=== PATIENT | female | born 1955 | race Caucasian/White ===

== ENCOUNTER 2018-02-27 20:08 | Emergency (ER) | payer OTHER ==
[2018-02-27 20:15] VITALS: BP 143/87
--- NOTE | 2018-02-27 20:27 | ED ---
Lower Extremity - HPI Summary HPI Summary: Patient is a 62-year-old female who presents to emergency department for right knee pain. Patient states she's been dealing with right knee pain for several months. She states she still orthopedics and has been doing physical therapy. Patient states her knee pain was improving until tonight. Patient states she was walking down steps when her knee gave out and she felt a pop. Patient denies numbness, tingling or weakness to right leg. She states she is unable to bear weight secondary to pain. Symptoms are mild in severity. No significant past medical history. Is prescribed nabumetone by ortho. Walking makes sxs worse. Nothing makes sxs better. - History of Current Complaint Chief Complaint: EDExtremityLower Stated Complaint: RT KNEE INJURY Time Seen by Provider: 02/27/18 20:27 Hx Obtained From: Patient Pain Intensity: 8 - Allergies/Home Medications Allergies/Adverse Reactions: Allergies Allergy/AdvReac Type Severity Reaction Status Date / Time cephalexin [From Keflex] Allergy Hives Verified 02/27/18 20:15 Sulfa (Sulfonamide Allergy Hives Verified 02/27/18 20:15 Antibiotics) PMH/Surg Hx/FS Hx/Imm Hx Previously Healthy: Yes Infectious Disease History: No Infectious Disease History: Denies: Traveled Outside the [place] in Last 30 Days - Social History Occupation: Works From/At Home Lives: With Family Review of Systems Positive: Other - Right knee pain Negative: Weakness, Numbness All Other Systems Reviewed And Are Negative: Yes Physical Exam Triage Information Reviewed: Yes Vital Signs On Initial Exam: Initial Vitals Temp Pulse Resp BP Pulse Ox 99.3 F 93 16 143/87 97 02/27/18 20:10 02/27/18 20:10 02/27/18 20:10 02/27/18 20:10 02/27/18 20:10 Vital Signs Reviewed: Yes Appearance: Positive: Well-Appearing - Pt. sitting in wheelchair in NAD. present. Skin: Positive: Warm, Dry Head/Face: Positive: Normal Head/Face Inspection Eyes: Positive: Normal, EOMI Neck: Positive: Supple Musculoskeletal: Positive: Other - Pt. keeping right knee at a slightly flexed position. Pain with extension. Pain to posterior right knee. No increase in laxity. No effusion. Quadriceps tendon intact. Good palpable pedal pulse Neurological: Positive: Normal, Alert, Oriented to Person Place, Time Diagnostics - Vital Signs Vital Signs Temp Pulse Resp BP Pulse Ox 02/27/18 20:10 99.3 F 93 16 143/87 97 - Laboratory Lab Statement: Any lab studies that have been ordered have been reviewed, and results considered in the medical decision making process. Lower Extremity Course/Dx - Course Course Of Treatment: Patient presenting with right knee injury. She is not rashly intact. X-ray reviewed by myself and Dr. Key and is negative for acute findings. Patient placed in a knee immobilizer and crutches. Patient states they are from [place] and are passing through the area [employer]. She states she has an appointment with her home orthopedics for next week. Advised to keep this appointment and may possibly need outpatient MRI pain persists. Advised ice and elevate. Continue home medications as directed. Patient understands and agrees with plan. - Diagnoses Differential Diagnosis/HQI/PQRI: Positive: Arthritis, Fracture (Closed), Sprain , Strain Provider Diagnoses: Knee injury Discharge - Sign-Out/Discharge Documenting (check all that apply): Patient Departure - Discharge Plan Condition: Good Disposition: HOME Patient Education Materials: Knee Pain (ED) Referrals: No Primary Care Phys,NOPCP [Primary Care Provider] - Additional Instructions: Follow up with your orthopedic doctor next week as scheduled Wear immobilizer and use crutches Ice and elevate Continue home medications as directed Return to ER if symptoms change or worsen - Billing Disposition and Condition Condition: GOOD Disposition: Home
== END 2018-02-27 21:52 | disposition home or self-care (01) ==
LOC: ED 20:08
DX: S89.91XA Unspecified injury of right lower leg, initial encounter (principal); X58.XXXA Exposure to other specified factors, initial encounter; Y92.9 Unspecified place or not applicable
CPT/HCPCS: 99282